=== PATIENT | female | born 1980 | race Caucasian/White ===

== ENCOUNTER 2018-11-12 07:28 | Inpatient (IN) | payer OTHER ==
[~2018-11-12] VITALS: Ht 152.4 cm; Wt 54.0 kg
[2018-11-12 08:13] LABS: BASOPHILS ABSOLUTE AUTO 0.03 K/mm3 (0.00-0.23); BASOPHILS PERCENT AUTO 0 % (0-2); EOSINOPHILS ABSOLUTE AUTO 0.05 K/mm3 (0.00-0.68); EOSINOPHILS PERCENT AUTO 0 % (0-6); Hemoglobin 15.5 g/dL (11.5-16.0); IMMATURE GRAN ABSOLUTE AUTO 0.05 K/mm3 (0.00-0.10); IMMATURE GRAN PERCENT AUTO 0 % (0-1); LYMPHOCYTES ABSOLUTE AUTO 1.06 K/mm3 (0.84-5.20); LYMPHOCYTES PERCENT AUTO 8 % (21-46); MONOCYTES ABSOLUTE AUTO 0.77 K/mm3 (0.16-1.47); MONOCYTES PERCENT AUTO 6 % (4-13); Mean Corpuscular HGB 29.9 pg (26.0-34.0); Mean Corpuscular HGB Conc 33.7 g/dL (31.5-36.5); Mean Corpuscular Volume 89 fL (80-100); Mean Platelet Volume 9.6 fL (9.1-12.4); NEUTROPHILS ABSOLUTE AUTO 11.12 K/mm3 (1.96-9.15); NEUTROPHILS PERCENT AUTO 85 % (41-73); Platelet Count 231 K/mm3 (150-400); RDW Coefficient Variation 12.9 % (11.7-14.2); RDW Standard Deviation 42.2 fL (35.1-46.3); Red Blood Cell Count 5.18 M/mm3 (3.80-5.20); White Blood Cell Count 13.08 K/mm3 (4.00-11.30)
[2018-11-12 08:35] LABS: Alanine Aminotransfer (ALT/SGP 20 U/L (12-78); Albumin, Blood 4.2 g/dL (3.4-5.0); Albumin/Globulin Ratio 1.2 (0.8-1.8); Alk Phos 67 U/L (50-136); Anion Gap 6 mmol/L (6-16); Aspartate Aminotrans (AST/SGOT 11 U/L (12-37); Bilirubin, Total 0.5 mg/dL (0.1-1.0); Blood Urea Nitrogen 11 mg/dL (8-24); Bun/Creatinine Ratio 15.3 (12.0-20.0); CO2, Blood 26 mmol/L (21-32); Chloride, Blood 109 mmol/L (98-108); Creatinine, Blood 0.72 mg/dL (0.40-1.00); Ethanol (Alcohol), Blood, Med <3 mg/dL; Globulin, Blood 3.6 g/dL (2.2-4.0); Glomerular Filtration Rate >60 (60-); Glucose, Blood 80 mg/dL (70-99); Salicylate 3.2 mg/dL (2.8-20.0); Sodium, Blood 141 mmol/L (136-145); Total Protein, Blood 7.8 g/dL (6.4-8.2)
[2018-11-12 08:47] LABS: Acetaminophen, Random <2.0 ug/mL (10.0-30.0)
[2018-11-12 12:28] LABS: U Amphetamine Screen DETECTED; U Barbituate Screen Not Detected; U Benzodiazapine Screen Not Detected; U Buprenorphine Screen Not Detected; U Cannabinoids Screen Not Detected; U Cocaine Screen Not Detected; U Methadone Screen Not Detected; U Methamphetamine Screen DETECTED; U Opiates Screen Not Detected; U Oxycodone Screen Not Detected; U Phencyclidine Screen Not Detected; U Propoxyphene Screen Not Detected
--- NOTE | 2018-11-12 14:27 | NUR ---
The pt arrived to PCU 14, minimally conversant, spending most of the time texting on her phone since arrival to unit. Does make eye contact when I initiate conversation with her. Flat affect, withdrawn. IV D% infusing as well as potassium rider to the left antecubital space. Vital signs are stable, the pt is without any c/o pain, distress, or anxiety at this time.
--- NOTE | 2018-11-12 17:34 | NUR ---
SHIFT SUMMARY The pt arrived to the unit, quiet, conversant but withdrawn. She was busy texting and answering phone calls on her cell phone. At one point began sobbing, stating that her was leaving her. She again began to sob about an hour later, stating that she was upset about her leaving her, stating that she just wants him to stay. STates that they have been for 20 years. She told me that she has in her lifetime had thoughts of killing herself, but that they didn't last very long. Stated that none have been within the past 3 months, and that the medications she took last night were an attempt to get her to stay with her. She has been sleepy, but easily arousable and has tolerated her regular diet after receiving Zofran. Her nausea coincided with the initiation of the octreotide drip, but it was slowed per pharmacy recmmendation to 100cc/hour, and after a dose of zofran it was resolved.
--- NOTE | 2018-11-12 17:55 | NUR ---
Per RN request, I met with Emily who was tearful and in despair. She has been having problems in her 20 year marriage. Her left her. She has three teenage children. Emily was talkative and appeared to feel safe with me. I provided theraputic listening and gentle funeral pre arrangement counselor. She responded well to spiritual direction and prayer. Emily will benefit from continued spiritual support and on-going counseling. For now, she seemed uplifted by visit and was smiling. I will remain available.
--- NOTE | 2018-11-12 19:30 | NUR ---
PATIENT LAYING IN BED WITHDRAWN. ASKED PATIENT WHAT SHE WAS HERE FOR. PATIENT STATES "I HURT MYSELF TO HURT MY BECAUSE HE WAS GOING TO LEAVE ME." ASKED HER IF SHE REALIZED THAT SHE WAS HURTING HERSELF, SHE STATED YES. PATIENT STATES SHE DIDN'T THINK IT WAS GOING TO KILL HER BUT THOUGHT IT WOULD MAKE HER VERY SICK. PATIENT STATES SHE HAS NOT INTENT TO HURT HERSELF AT THIS TIME AND HAS NO PLAN.
--- NOTE | 2018-11-12 20:10 | NUR ---
POISON CONTROL CALLED TO CHECK ON PATIENT. GIVEN VITALS AND MEDICATIONS GIVEN. POISON CONTROL STATES TO CONTINUE TO MONITOR AT THIS TIME THEY WILL CHECK BACK IN THE MORNING.
--- NOTE | 2018-11-12 20:30 | NUR ---
NOTIFIED DR. JOHNSTON THAT PATIENT POTASSIUM WAS COMPLETED AND POTASSIUM HAS NOT BEEN CHECKED SINCE THIS MORNING. aSKED IF HE WOULD LIKE TO RECHECK POTASSIUM. NOT THIS TIME.
--- NOTE | 2018-11-12 21:51 | NUR ---
PATIENT CRYING UPSET BECAUSE HER IS TEXTING HER THAT HE IS LEAVING HER. PATIENT HAS ADMITED THAT HER INTENT WAS TO HURT HERSELF TO KEEP HER FROM LEAVING HER. STATES SHE DOESN'T INTEND TO HURT HERSELF AT THIS TIME. PATIENT AGREED TO HAVE HER PHONE PUT AWAY TO TAKE AWAY THAT EMOTIONAL STRESSOR.
--- NOTE | 2018-11-12 22:01 | NUR ---
SI RISK - CONCERN BY PRIMARY RN PRIMARY RN INFORMED THIS RN THAT PATIENT HAS BEEN TEARFUL T/O SHIFT AND HAS BEEN YELLING AT HER PHONE AND VERY EMOTIONAL. PATIENT PRESENTED TO ER TODAY FOR SI ATTEMPT WITH MEDICATION OVERDOSE. DISCUSSED WITH NURSING FAMILY COUNSELOR TINO - IT WAS CONCULDED THAT PATIENT SHOULD BE ON SI PRECAUTIONS. [place] SCALE COMPLETED BY PRIMARY RN SHOWED POSITIVE. CALLED PROVIDER SINPU TO NOTIFY OF CONCERNS FOR SI RISK AND PATIENT PRESENTATION. PATIENT GIVEN ORDERS FOR SI PRECAUTIONS. THIS RN SAT WITH PATIENT AND DISCUSSED AND SHE WAS COOPERATIVE AND UNDERSTANDING AND REMAINS TEARFUL AND APOLOGETIC. PATIENT IS IN EMOTIONAL DISTRESS DUE TO HER LEAVING HER AND VERBALIZING VIA TEXT MESSAGES THAT HE WILL NOT BE COMING BACK - PER PATIENT. WHICH IS WHY SHE ATTEMPTED TO HARM HERSELF WITH PO MEDICATIONS CAUSING THIS ADMIT.
--- NOTE | 2018-11-12 22:10 | NUR ---
REPORT GIVEN TO DEENA CORADO IN ICU. PATIENT WALKED OVER TO ICU.
--- NOTE | 2018-11-12 22:30 | NUR ---
TRANSFER IN TO ICU PT WALKED OVER FROM PCU TO ICU 3 AT 2210 WITH PRIMARY RN AT SIDE. PT IS CALM AND COOPERATIVE WITH FLAT AFFECT AT THIS TIME. PT CURRENTLY DENIES SI AT THIS TIME. PT INFORMED OF SI RISK AND CLOSER MONITORING WITH CAMERA FOR PT SAFETY. VITAL SIGNS STABLE AT THIS TIME. D5 NS INFUSING AT 100 ML/HR. CBG'S STABLE. PT BELONGINGS LOCKED IN CABINET IN ROOM. ENGAGEMENT SPECIALIST DEENA JOHNSTON NOTIFED OF TRANSFER AND CURRENT CONDITION, ORDERS TO CONTINUE WITH CURRENT PLAN OF CARE. WILL CONTINUE TO MONITOR.
[2018-11-13 03:43] LABS: BASOPHILS ABSOLUTE AUTO 0.04 K/mm3 (0.00-0.23); BASOPHILS PERCENT AUTO 1 % (0-2); EOSINOPHILS ABSOLUTE AUTO 0.05 K/mm3 (0.00-0.68); EOSINOPHILS PERCENT AUTO 1 % (0-6); Hematocrit 39.7 % (33.0-51.0); Hemoglobin 13.2 g/dL (11.5-16.0); IMMATURE GRAN ABSOLUTE AUTO 0.01 K/mm3 (0.00-0.10); IMMATURE GRAN PERCENT AUTO 0 % (0-1); LYMPHOCYTES ABSOLUTE AUTO 1.76 K/mm3 (0.84-5.20); LYMPHOCYTES PERCENT AUTO 24 % (21-46); MONOCYTES ABSOLUTE AUTO 0.62 K/mm3 (0.16-1.47); MONOCYTES PERCENT AUTO 8 % (4-13); Mean Corpuscular HGB 29.6 pg (26.0-34.0); Mean Corpuscular HGB Conc 33.2 g/dL (31.5-36.5); Mean Corpuscular Volume 89 fL (80-100); Mean Platelet Volume 9.5 fL (9.1-12.4); NEUTROPHILS ABSOLUTE AUTO 4.89 K/mm3 (1.96-9.15); NEUTROPHILS PERCENT AUTO 66 % (41-73); Platelet Count 186 K/mm3 (150-400); RDW Coefficient Variation 12.9 % (11.7-14.2); RDW Standard Deviation 42.1 fL (35.1-46.3); Red Blood Cell Count 4.46 M/mm3 (3.80-5.20); White Blood Cell Count 7.37 K/mm3 (4.00-11.30)
[2018-11-13 04:03] LABS: Anion Gap 6 mmol/L (6-16); Blood Urea Nitrogen 11 mg/dL (8-24); Bun/Creatinine Ratio 17.7 (12.0-20.0); CO2, Blood 26 mmol/L (21-32); Calcium, Blood 8.1 mg/dL (8.5-10.1); Chloride, Blood 111 mmol/L (98-108); Creatinine, Blood 0.62 mg/dL (0.40-1.00); Glomerular Filtration Rate >60 (60-); Glucose, Blood 101 mg/dL (70-99); Sodium, Blood 143 mmol/L (136-145)
--- NOTE | 2018-11-13 05:28 | NUR ---
SHIFT SUMMARY NO ACUTE CHANGES THIS SHIFT. PT HAS REMAINED CALM AND COOPERATIVE WHEN AWAKE. PT CONTINUES WITH REMOTE MONITORING CAMERA IN PLACE FOR SI. VITAL SIGNS HAVE REMAINED STABLE. D5 NS INFUSING AT 100 ML/HR. CBG'S HAVE REMAINED STABLE. PT HAS REPOSITIONED SELF IN BED FOR COMFORT. WILL CONTINUE TO MONITOR AND REPORT OFF TO ONCOMING RN.
--- NOTE | 2018-11-13 07:00 | NUR ---
AM ASSESSMENT: PT IS ALERT AND ORIENTED X3. DENIES ANY PAIN, MOVES SELF IN BED INDEPENDENTLY. PT ENVIRONMENTAL RISK ASSESSMENT COMPLETE AND PT REMAINS ON CAMERA AT THIS TIME FOR SAFETY. PT IS A PENDING A CONSULT WITH DR CARDONA. PT DENIES ANY SI AT THIS TIME. PT REPORTS SHE OD'D ON MEDICATIONS IN AN ATTEMPT TO GET HER TO STAY WITH HER. FLAT/WITHDRAWN/DEPRESSED AFFECT. PT COOPERATIVE WITH CARE. LUNGS ARE CLEAR T/O BILATERALLY. SP02 SATS >90% ON RA. HR REGULAR, SB/SR 50-60'S RANGE. D5NS @ 100ML/HR. ABD SOFT/ROUND/NON-TENDER TO PALPATION. BT'S ACTIVE X4 QUADS.
--- NOTE | 2018-11-13 09:03 | NUR ---
DR ACEVEDO IN TO ASSESS PT. UPDATED DR WITH PT'S STATUS. SEE NEW ORDERS.
--- NOTE | 2018-11-13 11:50 | NUR ---
DR CARDONA IN TO CONSULT WITH PT. PT D/C'D FROM SUICIDE PRECAUTIONS AT THIS TIME PER DR CARDONA. CALLED RN INSIDE CHANNEL ACCOUNT MANAGER TO TAKE PT OFF OF CAMERA AT CENTRAL MONITORING STATION.
--- NOTE | 2018-11-13 12:44 | NUR ---
PT UPDATE: PT IS SITTING UP IN BED, TAKING CARE OF PERSONAL BUSINESS (BILLS, F/U WITH WORK). PT HAS NO NEEDS AT THIS TIME. VS REMAIN STABLE. CALL LIGHT WITHIN REACH.
--- NOTE | 2018-11-13 15:43 | NUR ---
SHIFT SUMMARY: PT REMAINS ALERT AND ORIENTED X3. PT CONTINUES TO HAVE A DEPRESSED/FLAT/WITHDRAWN AFFECT. COOPERATIVE WITH CARE. PT ABLE TO MOVE SELF INDEPENDENTLY IN THE BED/ROOM. PT OOB TO SHOWER TODAY. PT IS EAGER TO GO HOME. DR CARDONA IN TO CONSULT TODAY, SEE HIS DICTATED NOTE. LUNGS ARE CLEAR T/O BILATERALLY. SPO2-> 90% ON RA. HR REGULAR- SR 70'S RANGE. NO EDEMA. IV IN THE RT AC, SL'D. ABD SOFT/FLAT/NON-TENDER TO PALPATION. BT'S ARE ACTIVE AND PT HAS FAIR-GOOD APPETITE, EATING ABOUT 50% OF HER MEALS. -FULL CODE -CBG'S Q4HR
--- NOTE | 2018-11-13 19:15 | NUR ---
REPORTED OFF TO MICKIE DUNCAN WHOM ASSUMED CARE OF THIS PT.
--- NOTE | 2018-11-13 20:59 | NUR ---
ASSUMED PT CARE AT 1915 PT SLEEPING IN BED, BUT EASILY AROUSABLE. PT IS ALERT AND COOPERATIVE. DENIES ANY SUICIDAL IDEATION. PER REPORT DR. CARDONA EVALUATED PT AND CAME TO THE CONCLUSION THAT PT IS NO LONGER SUICIDAL AND DOESN'T REQUIRE SI MONITORING. PER REPORT PT'S BLOOD SUGARS DECREASED TO THE 70'S THIS AFTERNOON AND REQUIRED TO BE RESTARTED ON D5 AT 100MLS/HR. LAST TWO BLOOD SUGARS HAVE BEEN STABLE IN THE 90-100 RANGE. PT IS ABLE TO EAT AND DRINK APPROPRIATELY. CALL LIGHT LEFT WITHIN REACH. WILL CONTINUE TO MONITOR BLOOD SUGARS AND UPDATE PHYSICIANS ACCORDINGLY. PLACED CALL TO CARINA ROJAS IN REGARDS TO STATUS CHANGE TO MEDICAL FLOOR. VSS.
--- NOTE | 2018-11-13 22:40 | NUR ---
CALL PLACED TO POISON CONTROL FOR RECOMMENDATIONS REGARDING PT'S RECENT DECLINE IN BLOOD SUGAR DROM 99 TO 69 WITH D5 INFUSING AT 100MLS/HR. GAVE PT APPLE JUICE, CHEESE AND CRACKERS, AND ICE CREAM; PT ATE EVERYTHING BUT THE CRACKERS.
--- NOTE | 2018-11-13 23:32 | NUR ---
RECEIVED A RETURN CALL FROM POISON CONTROL WITH RECOMMENDATIONS TO GIVE OCTREOTIDE 50MCG SQ Q6HRS PRN. STATES THAT IT COULD TAKE UP TO 70 HOURS FOR BLOOD SUGARS TO STABILZE AFTER INGESTION OF GLIMEPIRIDE. CALL OUT TO DR. MCCLAIN FOR ORDERS.
--- NOTE | 2018-11-14 01:30 | NUR ---
RECEIVED A RETURN CALL FROM DR. MCCLAIN REGARDING SANDOSTATIN RECOMMENDATIONS FROM POISON CONTROL. NEW ORDERS FOR SANDOSTATIN 50MCG SQ Q6 HOURS PRN CONSISTENTLY LOW BLOOD SUGARS. NEW ORDERS FOR MEDICAL FLOOR STATUS NO TELE.
--- NOTE | 2018-11-14 05:25 | NUR ---
END OF SHIFT SUMMARY PT HAS REMAINED PLEASANT AND COOPERATIVE T/O SHIFT. TEARFUL AND UPSET AT TIMES. HAD TALKED TO ON HER CELL PHONE FOR A SHORT PERIOD OF TIME AT WHICH SHE BECAME VERY TEARFUL AND STATED AFTERWARD THAT SHE HAD A HEADACHE; OFFERED COLD CLOTH, WHICH PT DENIED. NO SUICIDAL IDEATIONS VERBALIZED THIS SHIFT; HOWEVER, PT APPEARS VERY DEPRESSED AND WITHDRAWN. BLOOD SUGARS MOSTLY STABLE 80-90'S WITH D5 INFUSING AT 100MLS/HR. PT DID EXPERIENCE A DROP TO 69 AROUND 2230; GAVE PT ICE CREAM AND A SNACK. CALLED POISON CONTROL FOR RECOMMENDATIONS REGARDING HALF LIFE OF GLIMEPIRIDE AND IF ANOTHER DOSE OF SANDOSTATIN WOULD BE RECOMMENDED. PER POISON CONTROL THE HALF LIFE OF A STANDARD DOSE IS 24 HOURS; THEREFORE, THE AMOUNT THAT THE PT INGESTED COULD TAKE UP TO 70HRS; RECOMMENDATIONS WERE GIVEN FOR SANDOSTATIN 50MCG SQ Q6 PRN. ORDER WERE RETRIEVED BY DR. MCCLAIN AROUND 0200 AND ADMINISTERED AT 0230; MOST RECENT BLOOD SUGAR AFTER SANDOSTATIN INJECTION WAS 114. CALL LIGHT WITHIN REACH; PT ABLE TO MAKE HER NEEDS KNOWN.
--- NOTE | 2018-11-14 08:42 | NUR ---
ASSUMED CARE / TRANSFER TO MED FLOOR: REPORT RECEIVED FROM GIN Nayak RN. ASSUMED CARE OF THIS PT AT APPROX 0700. ON ASSESSMENT, THE PT IS RESTING QUIETLY. SHE STS HAVING A HEADACHE THIS MORNING, MEDS PER EMAR. PT's CBG CHECKS ARE NOW Q4H, PRN SANDOSTATIN ORDERED IF CBG CHECKS TRENDING DOWN. D5NS INFUSING PER ORDERS. RM 310 HAS BEEN ASSIGNED TO PT. WILL CALL RN BACK SHORTLY TO PROVIDE REPORT. WILL CONTINUE TO MONITOR & UPDATE NEEDED.
--- NOTE | 2018-11-14 09:26 | NUR ---
TRANSFER TO 310: REPORT HAS BEEN GIVEN TO MICKIE QUINTANILLA TO ASSUME CARE ON MED FLOOR. PT AMBULATED TO NEW ROOM W/ TORRES KIMBROUGH. ALL BELONGINGS & CHART HAVE BEEN TAKEN OUT W/ PT.
--- NOTE | 2018-11-14 10:06 | NUR ---
TRANSFER NOTE HANDOFF RECEIVED FROM ICU NURSE JONATAN. PT AMBULATED INDEPENDENTLY TO ROOM 310 WITH ICU YARDING AND FOLDING MACHINE OPERATOR. IV FLUIDS RESUMED. PT ORIENTED TO UNIT. CALL PLACED TO ICU TO LOCATE PATIENT'S PHONE.
--- NOTE | 2018-11-14 14:15 | NUR ---
Pal Spiritual Care note: I met Emily when she was admitted. At that time she was despondant and tearful. Today, she is subdued but open to visit. She tells me that her roustabout crew pusher has been visiting her and she plans to continue counseling with him post-discharge. She is still fearful of possible future scenarios. Provided calm spiritual direction and prayer to good effect. Plan to go home tomorrow. Teenage children are supportive and concerned.
--- NOTE | 2018-11-14 16:23 | NUR ---
SHIFT SUMMARY PT IS CALM AND COOPERATIVE WITH CARE. PT DID NOT EAT MUCH OF HER LUNCH SHE FELT IT WAS UNAPPETIZING. LATER ON SHE DID REQUEST A SANDWICH, PUDDING, AND CORRY CRACKERS. HER BLOOD SUGAR AT 1600 HRS WAS 86, BUT THAT WAS BEFORE HER REQUESTED SNACK. I DID REQUEST TERESITA PATRICK TALK TO THE PT TODAY I FELT SHE EXPRESSED HOPELESSNESS FOR HER FAMILIAL SITUATION. SHE DID TAKE A SHOWER TODAY WELL. SHE DENIES SUICIDAL IDEATION. D5 IN NS IS STILL INFUSING @ 100 ML/HR. MUSIC THERAPY VISITED THE ROOM AND SHE WAS RESPONSIVE TO THAT.
--- NOTE | 2018-11-14 23:16 | NUR ---
11/14/18 2210 ANGRY WHEN TALKING ON THE PHONE. RN UNSURE OF WHO SHE IS TALKING WITH ON PHONE.
--- NOTE | 2018-11-15 18:09 | NUR ---
SHIFT SUMMARY NO ACUTE CHANGES. PATIENT MEDICATED X 2 FOR HEADACHE AND X 1 FOR NAUSEA. DENIES SHORTNESS OF BREATH. PATIENT UP INDEPENDENT IN THE ROOM AND OCCASSIONALLY WALKS IN HALLWAY. PATIENT PLEASANT AND COOPERATIVE WITH CARE. CALL LIGHT IN REACH.
--- NOTE | 2018-11-16 07:11 | NUR ---
SHIFT SUMMARY NO ACUTE EVENTS OVERNIGHT. PATIENT COMPLAINTS OF HEADACHE AND FEELING "SORE" WHEN GETTING OUT OF BED. PATIENT PROVIDED WITH IBUPROFEN AND TYLENOL PRESCRIBED BUT STATED THAT NEITHER HELPED PAIN. PATIENT STATED THAT SHE DID NOT WANT ANYTHING "STRONGER". PATIENT AMBULATING SELF TO BATHROOM WITH NO ISSUES.
--- NOTE | 2018-11-16 10:37 | NUR ---
TRATE HERE. DISCHARGE ORDERS RECEIVED. DEXTROSE IV STOPPED.
[2018-11-16] MEDS ORDERED: ACET325 PO (10:44)
[2018-11-16] MEDS ORDERED: IBUP400 PO (10:45)
[2018-11-16] MEDS ORDERED: FAMO20 PO (10:46)
[2018-11-16] MEDS ORDERED: ONDA4ODT PO (10:48)
--- NOTE | 2018-11-16 13:05 | NUR ---
DISCHARGE DISCHARGE MEDICATIONS AND INSTRUCTIONS EXPLAINED TO PATIENT AND PATIENT'S MOTHER. THEY STATED UNDERSTANDING. FOLLOW UP APPOINTMENT CANNOT BE SCHEDULED IT IS THE WEEKEND. PATIENT GIVEN REERRAL TO [facility]. IV REMOVED WITHOUT DIFFICULTY. BELONGINGS WITH PATIENT. PATIENT AMBULATED TO PRIVATE VEHICLE.
== END 2018-11-16 12:47 | disposition home or self-care (01) | DRG 918 ==
LOC: ER 07:28 → PCU 07:29 → ICUE 07:29 → PCU 14:01 → ICUE 22:10 → MEDS 11-14 09:26
PROVIDERS: Emergency Medicine; ADMIT Internal Medicine
DX: T43.212A Poisoning by selective serotonin and norepinephrine reuptake inhibitors, intentional self-harm, initial encounter (principal); T38.3X2A Poisoning by insulin and oral hypoglycemic [antidiabetic] drugs, intentional self-harm, initial encounter; T38.3X5A Adverse effect of insulin and oral hypoglycemic [antidiabetic] drugs, initial encounter; F43.21 Adjustment disorder with depressed mood; G43.909 Migraine, unspecified, not intractable, without status migrainosus; F17.210 Nicotine dependence, cigarettes, uncomplicated; F19.10 Other psychoactive substance abuse, uncomplicated
CPT/HCPCS: 36415; 80048; 80053; 82947; 84703; 85025; 93005; 93010; 96361; 96365; 96366; 96367; 96372; 96375; 96376; 99285-25; A9270; G0378; G0480; J1650; J2354; J2405; J3480; J7042; J7799

== ENCOUNTER 2024-01-23 12:13 | Emergency (ER) | payer OTHER ==
[~2024-01-23] VITALS: Ht 152.4 cm; Wt 58.1 kg
[~2024-01-23 12:13] MED LIST: ACET325 PO; FAMO20 PO; IBUP400 PO; ONDA4ODT PO
[2024-01-23 12:40] VITALS: BP 133/76
== END 2024-01-23 13:12 | disposition home or self-care (01) ==
LOC: ER 12:13
PROVIDERS: Physician Assistant
DX: Z77.21 Contact with and (suspected) exposure to potentially hazardous body fluids (principal); F17.200 Nicotine dependence, unspecified, uncomplicated; Z79.899 Other long term (current) drug therapy
CPT/HCPCS: 36415; 84460